=== PATIENT | male | born 1980 | race Caucasian/White ===

== ENCOUNTER → 2016-12-01 | Outpatient (CLI) | payer OTHER ==
--- NOTE | 2016-12-01 10:22 | Diagnostic Imaging Report ---
EXAM: Two views of the lumbar spine. INDICATION: Back pain. FINDINGS: There is straightening of the upper lumbar spine curvature. The alignment of the posterior spinal line is satisfactory. There is transitional lumbosacral junction with partial lumbarization of S1. No significant vertebral body height loss. Mild anterior wedging of T12 could be developmental or related to a mild compression fracture of indeterminate age. No significant osteophyte formation or degenerative changes. Sclerotic changes at the articulation of the lateral mass of S1 on the left side and the rest of the left sacral ala is seen. IMPRESSION: There is mild anterior wedged configuration of T12 vertebral body, could be developmental or related to an age indeterminate mild compression fracture. If the patient is tender at this location, then further evaluation with MRI of the lumbar spine would be of benefit. Dictated by: Dictated on workstation # [id number]
== END ==
LOC: RAD 09:55
PROVIDERS: ATTEND Family Medicine
DX: M54.5 Low back pain (principal)
CPT/HCPCS: 72100

== ENCOUNTER → 2017-01-02 | Outpatient (CLI) | payer OTHER | LOC: RAD 15:01 | PROVIDERS: ATTEND Family Medicine | DX: M54.5 Low back pain (principal); Z53.9 Procedure and treatment not carried out, unspecified reason ==

== ENCOUNTER → 2017-01-18 | Outpatient (CLI) | payer OTHER ==
--- NOTE | 2017-01-18 13:55 | Diagnostic Imaging Report ---
PROCEDURE: MRI lumbar spine. TECHNIQUE: Multiplanar, multisequence MRI of the lumbar spine was performed without contrast. INDICATION: Low back pain. FINDINGS: There is a transitional lumbosacral junction with slightly prominent disc at the S1-S2 level. Lumbarization of the sacral ala at S1 mimicking transverse processes is seen. There is normal alignment of the lumbar spine. The [id number] on this exam includes the lower portion of T12 which has normal marrow signal. The marrow signal in the other vertebral bodies is also normal. No compression fracture. There is disc desiccation at the L5-S1 level. No significant disc height loss is seen. There is a 1.4 x 0.5 x 0.5 cm T1 hyperintense signal lesion seen at the tip of the filum terminale with linear similar signal extending more inferiorly adjacent to the nerve roots down to lower L4 level. The conus terminates at the lower L2 level. 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 This does not have mass effect on adjacent structures. The nerve roots appear unremarkable otherwise. T12-L1: No disc herniation, no spinal canal or foraminal stenosis. L1-L2: No disc herniation, no spinal canal or foraminal stenosis. L2-L3: There is a minimal disc bulge and an annular tear posteriorly. No spinal canal or foraminal stenosis. L3-L4: No disc herniation, no spinal canal or foraminal stenosis. L4-L5: No disc herniation, no spinal canal or foraminal stenosis. L5-S1: There is a relatively large disc protrusion measuring 22 mm in transverse dimension and 9 mm anteroposteriorly and 15 mm craniocaudally. This is associated with mild ligamentum flavum thickening. It results in moderate central canal stenosis reducing the AP dimension of the canal to 5.3 mm with associated severe compression of the lateral recesses bilaterally compressing the descending S1 nerve roots. The neural foramina at this level are patent. IMPRESSION: 1. Please note transitional lumbosacral junction with partially lumbarized lateral masses of S1 and slightly prominent disc between S1 and S2. 2. Large central disc protrusion at L5-S1. This is associated with moderate central canal stenosis and severe bilateral lateral recess stenosis compressing the descending S1 nerve roots. 3. 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 This is not associated with mass effect on the adjacent nerves or cord tethering. Dictated by: Dictated on workstation # [id number]
== END ==
LOC: RAD 11:42
PROVIDERS: ATTEND Family Medicine
DX: M54.16 Radiculopathy, lumbar region (principal); M51.27 Other intervertebral disc displacement, lumbosacral region; D17.79 Benign lipomatous neoplasm of other sites
CPT/HCPCS: 72148

== ENCOUNTER 2017-02-19 14:39 | Outpatient (RCR) | payer OTHER ==
[2017-02-20] MEDS ORDERED: GABA-488 (05:48)
[2017-02-20] MEDS ORDERED: PRD20T PO (07:04)
[2017-02-20] MEDS ORDERED: OXYC-471 PO (07:04)
[2017-02-20] MEDS ORDERED: CYCL10TA9 PO (07:37)
== END 2017-03-28 | disposition home or self-care (01) ==
PROVIDERS: ATTEND Family Medicine
DX: M54.5 Low back pain (principal); I10 Essential (primary) hypertension; G40.909 Epilepsy, unspecified, not intractable, without status epilepticus; F17.210 Nicotine dependence, cigarettes, uncomplicated

== ENCOUNTER 2017-02-20 05:34 | Emergency (ER) | payer OTHER ==
[~2017-02-20] VITALS: Ht 195.6 cm; Wt 136.1 kg
[2017-02-20] MEDS ORDERED: GABA-488 (05:48)
[2017-02-20] MEDS ORDERED: KETOROLAC 30 MG/ML VIAL IVP ONE (06:00)
[2017-02-20] MEDS ORDERED: ORPHENADRINE 60 MG/2 ML (NORFLEX) AMP INJ ONE (06:00)
[2017-02-20] MEDS ORDERED: methylPREDNISolone 125 MG (Solu-MEDROL) VIAL IVP ONE (06:00)
[2017-02-20] MEDS ORDERED: HYDROmorphone (DILAUDID) 2 MG/ML VIAL IVP STA (06:29)
--- NOTE | 2017-02-20 06:41 | ED Back Pain ---
General Chief Complaint: Back Problems Stated Complaint: FALL,BACK PAIN Nursing Triage Note: PT TO ED 3 W/ C/O LOWER BACK PAIN. PT REPORTS HAS HERNIATED DISC IN HIS BACK, WAS GETTING READY FOR WORK ET "WENT DOWN". PT REPORTS PAIN RADIATING DOWN RT LEG. NO OTHER C/O VOICED Nursing Sepsis Screen: No Definite Risk Source of Information: Patient Exam Limitations: No Limitations History of Present Illness Time Seen by Provider: 05:40 Initial Comments Here by EMS with report of significant lower back pain that brought him to his knees this morning. Does have known bulging disc at L5-S1 and is currently under the care of Dr. Bertrand. They are trying to avoid surgery at this point. He is currently in physical therapy and they are setting up pain management therapy. The seventh of He is only on gabapentin currently. He denies bowel or bladder dysfunction. He denies numbness between his legs. Denies weakness. Historically has sciatic symptoms but states that is not the problem right now that it centered mostly around his low back. Location: Lumbar Spine Timing/Duration: 1 Hour Severity: Moderate, Severe Pain/Injury Location: Back Radiation: Buttocks Method of Injury: Unknown Modifying Factors: Improves With Immobilization, Worse With Movement Associated Symptoms: muscle spasms, No fever, No weakness, No numbness in legs/ feet, No tingling in legs/feet, No sensory/motor loss, lower back pain, No loss of bladder control, No loss of bowel control Allergies and Home Medications Allergies Coded Allergies: No Known Drug Allergies (Unverified , 02/20/17) Home Medications Cyclobenzaprine HCl 10 Mg Tablet, 10 MG PO Q8H PRN for SPASMS, #15 Ref 0 Prescribed by: ANTONY MCKNIGHT on 02/20/17 0737 Gabapentin 300 Mg Capsule, #90 (Reported) Oxycodone HCl/Acetaminophen 1 Each Tablet, 1-2 EACH PO Q6H PRN for PAIN, #20 Ref 0 Prescribed by: ANTONY MCKNIGHT on 02/20/17 0704 Prednisone 20 Mg Tab, 40 MG PO DAILY, #14 Ref 0 Prescribed by: ANTONY MCKNIGHT on 02/20/17 0704 Constitutional: see HPI, No chills, No fever Respiratory: no symptoms reported Cardiovascular: no symptoms reported Gastrointestinal: no symptoms reported Musculoskeletal: see HPI, back pain, muscle pain Psychiatric/Neurological: No Symptoms Reported Past Gafiyyd-Yygznq-Rpxiuc Hx Patient Social History Alcohol Use: Occasionally Uses Recreational Drug Use: No Smoking Status: Current Someday Smoker Type Used: Cigarettes Recent Foreign Travel: No Contact w/Someone Who Travel: No Recent Infectious Disease Expo: No Recent Hopitalizations: No Surgeries HX Surgeries: No Respiratory Hx Respiratory Disorders: Yes Respiratory Disorders: Asthma Cardiovascular Hx Cardiac Disorders: No Neurological Hx Neurological Disorders: Yes Neurological Disorders: Seizure Disorder (as a child) Genitourinary Hx Genitourinary Disorders: No Gastrointestinal Hx Gastrointestinal Disorders: No Musculoskeletal Hx Musculoskeletal Disorders: No Reviewed Nursing Assessment Reviewed/Agree w Nursing PMH: Yes Family Medical History Significant Family History: No Pertinent Family Hx Physical Exam Vital Signs Vital Sign - Last 12Hours 02/20/17 05:34 Temp 97.6 Pulse 67 Resp 20 B/P (MAP) 135/81 Pulse Ox 96 O2 Delivery Room Air Capillary Refill : Less Than 3 Seconds General Appearance: WD/WN, Moderate Distress (back pain related) Cardiovascular: Regular Rate, Rhythm, No Murmur Respiratory: Lungs Clear, Normal Breath Sounds Gastrointestinal: Non Tender, Soft Back: Muscle Spasm, Other (back tenderness) Extremity: Normal Inspection, Normal Range of Motion, Non Tender, No Calf Tenderness Neurologic/Psychiatric: Alert, Oriented x3 Skin: Normal Color, Warm/Dry Progress/Results/Core Measures Results/Orders My Orders Orders - ANTONY MCKNIGHT MD Hydromorphone Injection (Dilaudid Inject (02/20/17 06:29) Medications Given in ED Current Medications Medications Dose Ordered Sig/Yu Route Start Time Stop Time Status Last Admin Dose Admin Ketorolac Tromethamine 30 mg ONCE ONCE IVP 02/20/17 06:00 02/20/17 06:01 DC 02/20/17 06:01 30 MG Methylprednisolone Sodium Succinate 125 mg ONCE ONCE IVP 02/20/17 06:00 02/20/17 06:01 DC 02/20/17 06:01 125 MG Orphenadrine Citrate 60 mg ONCE ONCE INJ 02/20/17 06:00 02/20/17 06:01 DC 02/20/17 06:00 60 MG Vital Signs/I&O Vital Sign - Last 12Hours 02/20/17 05:34 Temp 97.6 Pulse 67 Resp 20 B/P (MAP) 135/81 Pulse Ox 96 O2 Delivery Room Air Blood Pressure Mean: 99 Progress Note : Progress Note Seen and evaluated initially by Dr. De La Rosa at 0540. I assumed care at 0610. Patient did receive fentanyl 50 g IV by EMS in route which did not change his pain much. Patient had received Norflex 60 mg, Toradol 30 mg IV and Solu-Medrol 125 mg IV in the ER here. This has not helped the pain much. Dilaudid 1 mg IV given which did provide moderate pain relief. Monitor patient. 0735: is back now. Overall remains improved. Discharged home with return precautions. Patient verbalize understanding instructions and agreement with plan. Departure Impression Impression: Primary Impression: Lumbar radiculopathy Disposition: HOME, SELF-CARE Condition: Improved Departure-Patient Inst. Decision time for Depature: 06:59 Referrals: ARTI JAIN MD (PCP/Family) Primary Care Physician Patient Instructions: Low Back Pain (DC), Radiculopathy (DC) Add. Discharge Instructions: All discharge instructions reviewed with patient and/or family. Voiced understanding. Take medications as directed. You may take ibuprofen 800 mg every 8 hours as needed for pain. Follow-up with your doctor this week for recheck and further evaluation. Continue to seek pain management doctor. Return for worse pain, fever, vomiting, weakness, numbness between her legs, difficulty with going to the bathroom or walking or other concerns as needed. Scripts Cyclobenzaprine HCl (Cyclobenzaprine HCl) 10 Mg Tablet 10 MG PO Q8H Y for SPASMS, #15 TAB 0 Refills Prov: ANTONY MCKNIGHT MD 02/20/17 Prednisone (Prednisone) 20 Mg Tab 40 MG PO DAILY, #14 TAB 0 Refills Prov: ANTONY MCKNIGHT MD 02/20/17 Oxycodone HCl/Acetaminophen (Oxycodone-Acetaminophen 5-325) 1 Each Tablet 1-2 EACH PO Q6H Y for PAIN, #20 TAB 0 Refills Prov: ANTONY MCKNIGHT MD 02/20/17 ANTONY MCKNIGHT MD Feb 20, 2017 06:41
[2017-02-20] MEDS ORDERED: OXYC-471 PO (07:04)
[2017-02-20] MEDS ORDERED: PRD20T PO (07:04)
[2017-02-20] MEDS ORDERED: CYCL10TA9 PO (07:37)
[2017-02-20 07:38] VITALS: BP 157/88
== END 2017-02-20 07:38 | disposition home or self-care (01) ==
LOC: EDUNIT# 05:34 → ER 05:37
DX: M54.16 Radiculopathy, lumbar region (principal); J45.909 Unspecified asthma, uncomplicated; G40.909 Epilepsy, unspecified, not intractable, without status epilepticus; F17.210 Nicotine dependence, cigarettes, uncomplicated
CPT/HCPCS: 96374; 96375; 99283

== ENCOUNTER 2017-09-02 20:54 | Emergency (ER) | payer OTHER ==
[~2017-09-02] VITALS: Ht 195.6 cm; Wt 140.6 kg
[~2017-09-02 20:54] MED LIST: CYCL10TA9 PO; GABA-488; OXYC-471 PO; PRD20T PO
[2017-09-02] MEDS ORDERED: predniSONE 20 MG TAB PO ONE (21:30)
[2017-09-02] MEDS ORDERED: RX-OXYCODONE/APAP 5-325 MG #4 TAB PK PO PRN (21:30)
[2017-09-02] MEDS ORDERED: PRD20T PO (21:34)
[2017-09-02] MEDS ORDERED: OXYC-197 PO (21:34)
--- NOTE | 2017-09-02 21:35 | ED Back Pain ---
General Chief Complaint: Back Problems Stated Complaint: BACK PAIN Nursing Triage Note: PT TO ED 6 W/ C/O CHRONIC BACK PAIN, WORSE THIS AM. DENIES INJURY. DOES REPORT HE TOOK A FLEXERIL BUT DENIES IMPROVEMENT Nursing Sepsis Screen: No Definite Risk Source of Information: Patient Exam Limitations: No Limitations History of Present Illness Date Seen by Provider: Sep 02, 2017 Time Seen by Provider: 21:31 Initial Comments To ER with reports of exacerbation of his chronic back pain. He's had low back pain secondary to a known bulging disc at L5-S1. He has seen Dr. Bertrand from neurosurgery at [place] but they didn't want to operate yet due to the young age. He was here several months ago for exacerbation and given a prednisone burst and oxycodone states this worked wonderfully for him. Tonight while getting up off the couch he twisted and felt an acute worsening of his back pain but it is nonradiating this time. No loss of bowel or bladder control, no saddle anesthesia or hypoesthesia, no history of cancer, no history of IV drug use. Location: Lumbar Spine Timing/Duration: 2-3 Days Severity: Moderate Associated Symptoms: lower back pain Allergies and Home Medications Allergies Coded Allergies: No Known Drug Allergies (Unverified , 02/20/17) Home Medications Cyclobenzaprine HCl 10 Mg Tablet, 10 MG PO Q8H PRN for SPASMS, #15 Ref 0 Prescribed by: ANTONY MCKNIGHT on 02/20/17 0737 Gabapentin 300 Mg Capsule, #90 (Reported) Oxycodone HCl/Acetaminophen 1 Each Tablet, 1-2 EACH PO Q6H PRN for PAIN, #20 Ref 0 Prescribed by: ANTONY MCKNIGHT on 02/20/17 0704 Prednisone 20 Mg Tab, 40 MG PO DAILY, #14 Ref 0 Prescribed by: ANTONY MCKNIGHT on 02/20/17 0704 Constitutional: see HPI, No chills, No fever EENTM: see HPI Respiratory: no symptoms reported Musculoskeletal: see HPI, back pain Skin: no symptoms reported Past Jmvopuw-Twgofz-Gftsvd Hx Patient Social History Alcohol Use: Denies Use Recreational Drug Use: No Smoking Status: Current Everyday Smoker Type Used: Cigarettes Recent Foreign Travel: No Contact w/Someone Who Travel: No Recent Infectious Disease Expo: No Recent Hopitalizations: No Physical Abuse: No Sexual Abuse: No Mistreated: No Fear: No Surgeries History of Surgeries: No Respiratory History of Respiratory Disorde: Yes Respiratory Disorders: Asthma Cardiovascular History of Cardiac Disorders: No Neurological History of Neurological Disord: Yes (STOPPED TAKING MEDS AT AGE 12) Neurological Disorders: Seizure Disorder Genitourinary History of Genitourinary Disor: No Gastrointestinal History of Gastrointestinal Di: No Musculoskeletal History of Musculoskeletal Dis: No Endocrine History of Endocrine Disorders: No HEENT History of HEENT Disorders: No Cancer History of Cancer: No Psychosocial History of Psychiatric Problem: No Suicide Risk Score: 0 Integumentary History of Skin or Integumenta: No Blood Transfusions History of Blood Disorders: No Family Medical History Significant Family History: No Pertinent Family Hx Physical Exam Vital Signs Vital Sign - Last 12Hours 09/02/17 21:01 Temp 99.6 Pulse 97 Resp 20 B/P (MAP) 153/103 (120) Pulse Ox 99 O2 Delivery Room Air Capillary Refill : Less Than 3 Seconds General Appearance: No Apparent Distress, WD/WN HEENT: PERRL/EOMI, TMs Normal Neck: Full Range of Motion, Normal Inspection Respiratory: No Accessory Muscle Use, No Respiratory Distress Gastrointestinal: Non Tender, Soft Extremity: Normal Capillary Refill, Normal Inspection Neurologic/Psychiatric: Alert, Oriented x3 Skin: Normal Color, Warm/Dry Progress/Results/Core Measures Results/Orders Vital Signs/I&O Vital Sign - Last 12Hours 09/02/17 21:01 Temp 99.6 Pulse 97 Resp 20 B/P (MAP) 153/103 (120) Pulse Ox 99 O2 Delivery Room Air Blood Pressure Mean: 120 Departure Impression Impression: Primary Impression: Back pain Disposition: 01 HOME, SELF-CARE Condition: Stable Departure-Patient Inst. Decision time for Depature: 21:33 Referrals: ARTI JAIN MD (PCP/Family) Primary Care Physician Patient Instructions: Low Back Pain (DC) Add. Discharge Instructions: 1. Medication as directed. This Percocet is known to be very addicting so it would be barber to only use this for severe pain and use it sparingly. Tylenol and Motrin combination can be used as well in place of this. 2. Return to ER for any worsening 3. Follow-up with your doctor this week All discharge instructions reviewed with patient and/or family. Voiced understanding. Scripts Prednisone (Prednisone) 20 Mg Tab 40 MG PO DAILY for 4 Days, TAB Prov: AZIZA CRUZ APRN 09/02/17 Oxycodone HCl/Acetaminophen (Percocet 5-325 mg Tablet) 1 Each Tablet 1 EACH PO Q4H Y for PAIN-SEVERE TO BREAKTHROUGH, #14 TAB Prov: AZIZA CRUZ APRN 09/02/17 Work/School Note: Work Release Form Date Seen in the Emergency Department: Sep 02, 2017 Return to Work: Sep 05, 2017 AZIZA CRUZ APRN Sep 02, 2017 21:34
[2017-09-02 21:42] VITALS: BP 0/0
== END 2017-09-02 21:44 | disposition home or self-care (01) ==
LOC: EDUNIT# 20:54 → ER 20:56
DX: M54.5 Low back pain (principal); J45.909 Unspecified asthma, uncomplicated; G40.909 Epilepsy, unspecified, not intractable, without status epilepticus; F17.210 Nicotine dependence, cigarettes, uncomplicated
CPT/HCPCS: 99283

== ENCOUNTER → 2017-09-25 | Outpatient (CLI) | payer OTHER ==
[~2017-09-25] MED LIST changes: +GADOBUTROL 15 MMOL/15 ML (GADAVIST) VIAL IV ONE; +OXYC-197 PO
--- NOTE | 2017-09-25 17:12 | Diagnostic Imaging Report ---
PROCEDURE: MRI lumbar spine with and without contrast. TECHNIQUE: Multiplanar, multisequence MRI of the lumbar spine was performed with and without contrast. INDICATION: Severe low back pain. COMPARISON: Comparison is made with prior MRI of the lumbar spine from 01/18/2017. FINDINGS: There appears to be a transitional lumbosacral vertebral body. Please see sagittal T2 weighted images for appropriate labeling. Curvature and alignment is normal. The vertebral body heights and marrow signal intensity are normal. No geographic marrow lesion is seen. There is some desiccation at the L5-S1 level, similar to prior exam. Previously noted T1 hyperintense lesion at the filum at the L2-3 level appears similar to prior exam and suggestive of a lipoma. L1-2: Central canal is widely patent. No neural foraminal stenosis is seen. L2-3: Unremarkable. L3-4: Unremarkable. L4-5: Unremarkable. L5-S1: There is a wide-based midline disc bulge which indents the ventral thecal sac. This is significantly decreased in size when compared with prior MRI from 01/18/2017. There continues to be mild central canal narrowing with AP dimension of the canal at 9 mm. Mild right lateral recess narrowing is noted. The left lateral recess is unremarkable. No significant neural foraminal stenosis is seen. No abnormal enhancement following contrast administration is seen. IMPRESSION: 1. L5-S1 degenerative disc disease. Previously noted large wide-based midline disc protrusion at this level is improved significantly since exam from January 2017. There does continue to be some mild central canal and right lateral recess narrowing at this level. No new abnormality is seen. 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 Dictated by: Dictated on workstation # [id number]
== END ==
LOC: RAD 15:11
PROVIDERS: ATTEND Neurological Surgery
DX: M48.07 Spinal stenosis, lumbosacral region (principal); M51.37 Other intervertebral disc degeneration, lumbosacral region; M51.27 Other intervertebral disc displacement, lumbosacral region; M47.27 Other spondylosis with radiculopathy, lumbosacral region; D17.39 Benign lipomatous neoplasm of skin and subcutaneous tissue of other sites
CPT/HCPCS: 72158

== ENCOUNTER 2021-01-04 13:56 | Outpatient (RCR) | payer OTHER ==
[~2021-01-04 13:56] MED LIST changes: -GADOBUTROL 15 MMOL/15 ML (GADAVIST) VIAL IV ONE; -OXYC-197 PO; -OXYC-471 PO; +OXYC1TAB11 PO; +OXYC1TAB87 PO
== END 2021-02-15 13:40 | disposition home or self-care (01) ==
DX: M25.561 Pain in right knee (principal)